=== PATIENT | female | born 1985 | race Caucasian/White ===

== ENCOUNTER 2018-01-01 13:03 | Outpatient (CLI) | payer OTHER | END 2018-01-01 13:04 | disposition home or self-care (01) | LOC: SC 13:03 | PROVIDERS: ATTEND Internal Medicine Pulmonary Disease | DX: G47.10 Hypersomnia, unspecified (principal); R06.83 Snoring; G47.9 Sleep disorder, unspecified | CPT/HCPCS: 99203; 99212 ==

== ENCOUNTER 2018-04-28 19:30 | Outpatient (CLI) | payer OTHER | END 2018-04-28 23:59 | disposition home or self-care (01) | LOC: SC 19:30 | PROVIDERS: ATTEND Internal Medicine Pulmonary Disease | DX: G47.10 Hypersomnia, unspecified (principal); R06.83 Snoring; E66.9 Obesity, unspecified; Z68.43 Body mass index [BMI] 50.0-59.9, adult | CPT/HCPCS: 95806 ==

== ENCOUNTER 2018-05-28 09:40 | Outpatient (CLI) | payer OTHER | END 2018-05-28 09:41 | disposition home or self-care (01) | LOC: SC 09:40 | PROVIDERS: ATTEND Internal Medicine Pulmonary Disease | DX: G47.10 Hypersomnia, unspecified (principal); E66.01 Morbid (severe) obesity due to excess calories; Z68.43 Body mass index [BMI] 50.0-59.9, adult | CPT/HCPCS: 99212 ==